=== PATIENT | male | born 1995 | race Caucasian/White ===

== ENCOUNTER 2018-11-25 06:11 | Day surgery (SDC) | payer BC ==
[~2018-11-25] VITALS: Ht 172.7 cm; Wt 78.5 kg
[2018-11-25 06:57] VITALS: BP 129/85
[2018-11-25] MEDS ORDERED: NORCO 5-325 TA1 EAC1 PO (09:42)
[2018-11-25] MEDS ORDERED: ONDANSETRON HCL4 M2 PO (09:42)
[2018-11-25] MEDS ORDERED: MIRALAX17 GM PO (09:42)
[2018-11-25 10:21] VITALS: BP 129/85
== END 2018-11-25 10:45 | disposition home or self-care (01) ==
LOC: OR 06:11 → TBA 06:12 → OR 10:13
DX: K40.20 Bilateral inguinal hernia, without obstruction or gangrene, not specified as recurrent (principal); Z79.899 Other long term (current) drug therapy
CPT/HCPCS: 50010; 50101; 50249; 50411; 50555; 51824; 52265; 52266; 53307; 54118; 54169; 56525; 56526; 62110; 62900; 70005